=== PATIENT | female | born 1955 | race African-American/Black ===

== ENCOUNTER 2017-08-31 16:21 | Emergency (ER) | payer BC ==
[2017-08-31] MEDS ORDERED: DIPHTH,PERTUSS(ACELL),TET 0.5 ML DISP.SYRIN IM ONE (16:32)
--- NOTE | 2017-08-31 16:32 | PDOC ---
Rapid Medical Evaluation Time Seen by Provider: 08/31/17 16:30 Medical Evaluation: Allergies Allergy/AdvReac Type Severity Reaction Status Date / Time hydrocodone Allergy Severe HIVES, Verified 08/31/17 16:29 ITCHING propoxyphene HCl Allergy Severe Difficulty Verified 08/31/17 16:29 [From Darvon] Breathing codeine Allergy Intermediate Itching Verified 08/31/17 16:29 08/31/17 16:30 62 year old female presents for removal of 3 sutures placed to upper lip 08/22 at [facility]. No erythema or discharge from wound. Tetanus was not updated during that visit and patient believes it needs to be.
[2017-08-31 16:34] VITALS: BP 147/74; PULSE 88; TEMP 98.5; BMI 21.9
--- NOTE | 2017-08-31 16:39 | PDOC ---
History of Present Illness - General Stated Complaint: STITCHES REMOVAL Time Seen by Provider: 08/31/17 16:30 History Source: Patient Exam Limitations: No Limitations - History of Present Illness Initial Comments: 08/31/17 16:37 62 year old female presents for removal of 3 sutures placed 08/22 at [facility]. No complaints. Past History - Travel Traveled outside of the country in the last 30 days: No Close contact w/someone who was outside of country & ill: No - Past Medical History Allergies/Adverse Reactions: Allergies Allergy/AdvReac Type Severity Reaction Status Date / Time hydrocodone Allergy Severe HIVES, Verified 08/31/17 16:29 ITCHING propoxyphene HCl Allergy Severe Difficulty Verified 08/31/17 16:29 [From Darvon] Breathing codeine Allergy Intermediate Itching Verified 08/31/17 16:29 Home Medications: Ambulatory Orders Multivitamin [Multivitamins] 1 each PO DAILY 12/11/11 Duloxetine HCl [Cymbalta -] 30 mg PO DAILY 03/17/16 Nitrofurantoin Macrocrystal [Macrodantin -] 100 mg PO BID #14 capsule 03/17/16 Anemia: Yes Asthma: No Cancer: No Cardiac Disorders: No CVA: No COPD: No CHF: No Dementia: No Diabetes: Yes GI Disorders: No Disorders: No HTN: Yes Hypercholesterolemia: No Liver Disease: No Seizures: No Thyroid Disease: No - Surgical History Abdominal Surgery: Yes (GASTRIC BYPASS 03/27/13) Appendectomy: Yes (1978) Cardiac Surgery: No Cholecystectomy: No Lung Surgery: No Neurologic Surgery: No Orthopedic Surgery: Yes (RIGHT MADALYN'S REPAIR 1997) - Immunization History Immunization Up to Date: No - Suicide/Smoking/Psychosocial Hx Smoking Status: Yes Smoking History: Current every day smoker Have you smoked in the past 12 months: Yes Number of Cigarettes Smoked Daily: 10 If you are a former smoker, when did you quit?: 2008 Information on smoking cessation initiated: No 'Breaking Loose' booklet given: 12/21/11 Hx Alcohol Use: No Drug/Substance Use Hx: No Substance Use Type: None Hx Substance Use Treatment: No Review of Systems - Review of Systems Constitutional: No: Chills, Fever *Physical Exam - Vital Signs Last Vital Signs Temp Pulse Resp BP Pulse Ox 98.5 F 88 14 147/74 100 08/31/17 16:30 08/31/17 16:30 08/31/17 16:30 08/31/17 16:30 08/31/17 16:30 Medical Decision Making - Medical Decision Making 08/31/17 16:38 A/P: 62 year old female presenting for suture removal. Only one suture is present and this was removed. Tetanus was not updated at her prior ED visit and this was done today. *DC/Admit/Observation/Transfer Diagnosis at time of Disposition: Visit for suture removal - Discharge Dispostion Disposition: HOME Condition at time of disposition: Stable Admit: No - Referrals - Patient Instructions Printed Discharge Instructions: How to Care for a Surgical Wound Additional Instructions: -Return for redness around the wound or any other concerning symptoms -Your tetanus vaccine was updated today - Post Discharge Activity
== END 2017-08-31 16:46 | disposition home or self-care (01) ==
LOC: JERFT 16:21
DX: Z48.02 Encounter for removal of sutures (principal)
CPT/HCPCS: 90715; 99281-25